=== PATIENT | female | born 1990 | race Caucasian/White ===

== ENCOUNTER 2023-03-29 21:00 | Emergency (ER) | payer BC, SELFPAY ==
[2023-03-29] MEDS ORDERED: Morphine 4 MG/ML VIAL ONE (21:27)
[2023-03-29] MEDS ORDERED: Ondansetron PF 4 MG/2 ML Vial ONE (21:27)
[2023-03-29 21:41] LABS: #Basophils 0.1 10x3/uL (0.0-0.2); #Monocytes 0.8 10x3/uL (0.0-1.1); %Basophils 0.3 % (0.0-2.0); %Eosinophils 0.2 % (0.0-6.0); %Lymphocytes 13.4 % (18.0-47.0); %Monocytes 4.6 % (0.0-10.0); %Neutrophils 80.9 % (40.0-75.0); Hematocrit 40.1 % (34.9-44.5); Hemoglobin 13.8 g/dL (12.0-15.5); Mean Corpuscular HGB CONC 34.4 g/dL (32.0-36.0); Mean Corpuscular Hemoglobin 29.6 pg (27.0-33.0); Mean Corpuscular Volume 86.1 fl (81.6-98.3); Mean Platelet Volume 10.2 fl (7.4-10.4); Platelet Count 252 10x3/uL (150-450); RBC Distribution Width 12.3 % (11.5-14.5); Red Blood Cell (RBC) Count 4.66 10x6/uL (3.90-5.03); White Blood Cell (WBC) Count 17.3 10x3/uL (3.5-10.5)
[2023-03-29 21:48] LABS: BHCG - Serum Negative (NEGATIVE); Pregs Control Background? CLEAR/WHITE (CLR/WHITE); Pregs Control Bar Appear? YES (CONTROL BAR)
[2023-03-29 21:54] LABS: ALT (SGPT) 12 U/L (8-55); AST (SGOT) 23 U/L (5-34); Albumin 4.4 g/dL (3.5-5.0); Alkaline Phosphatase 59 U/L (40-110); Anion Gap 15 mmol/L (10-20); BUN (Urea Nitrogen) 5 mg/dL (7.0-18.7); Bilirubin, Total 0.6 mg/dL (0.2-1.2); Calc. Creatinine Clearance 0 mL/min (70-130); Calcium 9.1 mg/dL (7.8-10.44); Carbon Dioxide 23 mmol/L (22-29); Chloride 106 mmol/L (98-107); Estimated GFR 113; Globulin 3.1 g/dL (2.4-3.5); Glucose 89 mg/dL (70-105); Potassium 3.7 mmol/L (3.5-5.1); Protein, Total 7.5 g/dL (6.0-8.3); Sodium 140 mmol/L (136-145)
[2023-03-29 22:09] LABS: Bilirubin Neg (Negative); Blood, Urine 250 (Negative); Glucose, Urine (Dipstick) Normal (Negative); Ketone, Urine 15 mg/dL (Negative); Leukocyte 500 (Negative); Nitrite Negative (Negative); Urobilinogen Normal mg/dL (Less than 2)
[2023-03-29 22:25] LABS: Clarity Cloudy (Clear); Protein, Urine (Dipstick) 100 mg/dl (Neg-Trace)
[2023-03-29 22:29] LABS: CAUTI Indications for Culture Pelvic or flank pain; RBC/HPF Greater than 50 HPF (0-3); WBC/HPF Greater than 50 HPF (0-3)
[2023-03-29 22:30] LABS: Bacteria/HPF 2+ HPF (None Seen); Squamous Epithelial 0-3 HPF (0-3)
[2023-03-29 22:31] LABS: Urine Culture Reflex Yes Yes
[2023-03-29] MEDS ORDERED: cefTRIAXone (ROCEPHIN) 1 GM VIAL ONE (22:37)
== END 2023-03-29 23:15 | disposition home or self-care (01) ==
LOC: CSHERS 21:00
DX: N10 Acute pyelonephritis (principal)
CPT/HCPCS: 80053; 81001; 84703; 85025; 87077; 87086; 87186; 96365; 96375; J0696; J2270; J2405